=== PATIENT | male | born 1950 | race Caucasian/White ===

== ENCOUNTER 2020-05-11 15:37 | Inpatient (IN) | payer MEDICARE, BC ==
[~2020-05-11] VITALS: Ht 172.7 cm; Wt 86.4 kg
[2020-05-11 16:55] LABS: HEMATOCRIT 44.9 % (42.0-52.0); HEMOGLOBIN 15.7 g/dl (13.5-18.0); MEAN CELL VOLUME 90 fl (80.0-100.0); MEAN CORPUSCULAR HEMOGLOBIN 31 pg (27.0-31.0); MEAN CORPUSCULAR HGB CONC 35 g/dl (33.0-37.0); MEAN PLATELET VOLUME 9.4 fl (7.4-10.4); PLATELET COUNT 213 K/mm3 (130-400); REDCELL DISTRIBUTION WIDTH-CV 12.3 % (11.5-14.5)
[2020-05-11 17:11] LABS: ALBUMIN 4.4 gm/dL (3.5-5.0); BILIRUBIN,TOTAL 1.5 mg/dL (0.0-1.0); C-REACTIVE PROTEIN 3.6 mg/dL (0.0-0.9); CALCIUM 9.2 mg/dL (8.4-10.2); CREATININE, serum 1.21 (0.66-1.25); TOTAL PROTEIN 7.5 gm/dL (6.4-8.2)
[2020-05-11 17:35] LABS: LIPASE 46 U/L (23-300)
[2020-05-11 17:39] LABS: BAND 15 % (0-10); LYMPHOCYTE 3 % (20.0-51.0); NEUTROPHILS 75 % (42.0-75.2)
[2020-05-11 17:40] LABS: OVALOCYTES 1+
[2020-05-11 17:50] LABS: TROPONIN-I < 0.012 ng/mL (0.000-0.035)
[2020-05-11 18:18] LABS: COLLECTION METHOD CLEAN CATCH
[2020-05-11 18:42] LABS: MUCOUS Present /lpf; PH 5 (5-8); SQUAMOUS EPITHELIAL None Seen /hpf; URINE APPEARANCE Hazy; URINE BACTERIA Many /hpf; URINE BILIRUBIN Negative (NEGATIVE); URINE BLOOD Negative (NEGATIVE); URINE COLOR Yellow; URINE GLUCOSE Negative (NEGATIVE); URINE KETONE Negative (NEGATIVE); URINE LEUKOCYTE ESTERASE Trace (NEGATIVE); URINE NITRATE Negative (NEGATIVE); URINE PROTEIN(semi-quant) Negative (NEGATIVE); URINE RBC 0-2 /hpf; URINE UROBILINOGEN Negative (NEGATIVE)
--- NOTE | 2020-05-11 19:05 | NUR ---
Vancomycin Initial Dosing Pharmacy Note Ordering provider: Melvin Rivera MD Indication/duration: EMPIRIC Relevant comorbidities: RECENT LABS: WBC 19.1, TMAX 101.3, SCr 1.2, CrCl 54 Recommendation: VANCOMYCIN 17 MG/KG Loading dose: 1.5 grams Maintenance dose: 1.5 grams every 12 hours Trough goal: 15-20 ug/mL. TROUGH 05/13 @ 1900
[2020-05-11 20:23] VITALS: BP 119/58; PULSE 97; TEMP 101
[2020-05-11] MEDS ORDERED: LIPITOR 80MG80 MG PO (23:35)
[2020-05-11] MEDS ORDERED: ASPIRIN 32325 MG/TAB PO (23:37)
[2020-05-11] MEDS ORDERED: DAILY MULTIPLE1 T18 (23:38)
[2020-05-11 23:44] VITALS: BP 102/57; PULSE 102; TEMP 103
[2020-05-12] VITALS (8 sets, daily range): BP systolic 101–146; BP diastolic 49–62; PULSE 75–98; TEMP 98.4–103.1
[2020-05-12 07:11] LABS: BASO % 0.2 % (0.0-2.0); GRAN # 15.1 (1.4-6.5); GRAN % 86.2 % (42.2-75.2); HEMATOCRIT 40.2 % (42.0-52.0); LYMPH # 1.2 (1.2-3.4); LYMPH % 6.9 % (20.0-51.0); MEAN CELL VOLUME 93 fl (80.0-100.0); MEAN CORPUSCULAR HEMOGLOBIN 32 pg (27.0-31.0); MEAN CORPUSCULAR HGB CONC 34 g/dl (33.0-37.0); MEAN PLATELET VOLUME 10.4 fl (7.4-10.4); MONO # 1.1 (0.1-0.6); MONO % 6.2 % (1.7-9.3); PLATELET COUNT 162 K/mm3 (130-400); RED BLOOD COUNT 4.31 M/mm3 (4.20-5.60); REDCELL DISTRIBUTION WIDTH-CV 12.7 % (11.5-14.5)
[2020-05-12 07:18] LABS: HEMOGLOBIN 13.6 g/dl (13.5-18.0)
[2020-05-12 07:19] LABS: ALBUMIN 3.6 gm/dL (3.5-5.0); BILIRUBIN,TOTAL 1.2 mg/dL (0.0-1.0); CALCIUM 8.2 mg/dL (8.4-10.2); CREATININE, serum 1.17 (0.66-1.25); POTASSIUM 3.8 mmol/L (3.4-5.0); TOTAL PROTEIN 6.3 gm/dL (6.4-8.2)
--- NOTE | 2020-05-12 08:40 | NUR ---
Shift assessment complete. Pt lying in bed, denies pain or nausea. Mild temp of 100.9 this AM, no chills. Heart RRR. Lungs CTA. A&Ox4. Reports decreased appetite. NS running at 150 ml/hr and vanco infusing piggback. Denies other needs. Call light in reach.
--- NOTE | 2020-05-12 12:16 | NUR ---
First visit from the linter saw sharpener. No needs right now.
--- NOTE | 2020-05-12 13:27 | NUR ---
Blade Sharpener met with patient and patient's , Jenae (ph#[phone]) to discuss discharge planning. Patient lives in [place] with his and sees Dr. Romero for primary care. Patient obtains medications from [facility] in with no difficulties. Patient does not use DME and reports independence with ADLS. Patient reports he has DPO[employer]-HC which designates his , Jenae but SW did not locate copy in EMR. Patient plans to return home upon discharge. SW will continue to follow.
--- NOTE | 2020-05-12 17:48 | NUR ---
Intermittent fevers today with T-max of 102.9. Temp at this time 100.1. Pt reporting chills and is visibly shivering. Tylenol not due for another hour but will administer when due. Reports decreased appetite today and did not each much. No other complaints. Continuing to monitor.
--- NOTE | 2020-05-12 21:25 | NUR ---
Patient assessed at this time. Alert and oriented x 4, and able to make needs known. Denies having pain and discomfort at this time. Peripheral IV to left wrist. Site without redness, warmth, swelling, and pain. Denies having SOB and dyspnea. LS CTA. Respirations even and unlabored. HRR. Capillary refill less than 3 seconds. Non-tenting skin turgor. BSAx4. Abdomen soft and non-tender. No edema. Voices no questions, needs, or concerns at this time. Resting in bed with call light within reach. Temp 103.1. Given PRN APAP.
[2020-05-13 03:37] VITALS: BP 147/46; PULSE 108; TEMP 98.9
--- NOTE | 2020-05-13 05:23 | NUR ---
Patient has been afebrile this shift since receiving PRN APAP at beginning of shift. Denies having pain and discomfort at this time. Voices no questios, needs, or concerns at this time. Resting in bed with call light within reach.
[2020-05-13 07:19] VITALS: BP 140/56; PULSE 98; TEMP 100.3
--- NOTE | 2020-05-13 07:58 | NUR ---
Assessment complete. Paient relaxing in bed on entry. States he was able to eat a little bit but his appetite still isnt really there. No complaints of pain or discomfort were expressed. Informed him of student nurse that with him this morning as well. IV site is CD&I, zosyn currently infusing at this time. Patient denies other needs at this time. PAtient remains independent with no issues. Will continue to monitor. Call light is in reach.
[2020-05-13 08:09] LABS: HEMATOCRIT 33.7 % (42.0-52.0); HEMOGLOBIN 11.6 g/dl (13.5-18.0); MEAN CELL VOLUME 92 fl (80.0-100.0); MEAN CORPUSCULAR HEMOGLOBIN 32 pg (27.0-31.0); MEAN CORPUSCULAR HGB CONC 34 g/dl (33.0-37.0); MEAN PLATELET VOLUME 9.9 fl (7.4-10.4); PLATELET COUNT 128 K/mm3 (130-400); RED BLOOD COUNT 3.67 M/mm3 (4.20-5.60); REDCELL DISTRIBUTION WIDTH-CV 12.9 % (11.5-14.5)
[2020-05-13 08:21] LABS: ALBUMIN 2.8 gm/dL (3.5-5.0); BILIRUBIN,TOTAL 1.2 mg/dL (0.0-1.0); CALCIUM 7.8 mg/dL (8.4-10.2); CREATININE, serum 1.16 (0.66-1.25); POTASSIUM 3.4 mmol/L (3.4-5.0); TOTAL PROTEIN 5.6 gm/dL (6.4-8.2)
[2020-05-13 10:53] LABS: MONOSCREEN NEGATIVE
[2020-05-13 12:20] VITALS: BP 127/53; PULSE 65; TEMP 97.7
[2020-05-13 16:29] VITALS: BP 160/79; PULSE 115; TEMP 100.1
[2020-05-13 16:36] VITALS: BP 160/62
--- NOTE | 2020-05-13 18:29 | NUR ---
Patient has had a good day. he felt really good around lunch and was able to eat a full meal. Near shift change patient began to feel shivery and minimally dizzy. PRN tylenol was provided and patient was encouraged to relax and not attempt to move around too much. currently at the [facility]. PAtient not wanting to eat dinner at this time, states he will when he feels a little better. Encouraged patient to call is chills or dizziness got orse. Continuing to monitor. Call light is in reach.
[2020-05-13 19:27] VITALS: BP 119/56; PULSE 98; TEMP 102.5
--- NOTE | 2020-05-13 22:03 | NUR ---
Awake, alert, oriented x 4, fever noted, reviewed orders for tylenol- not due yet, adjusted room temp, patient teaching, encouraged po fluids, ambulates independently, respirations even and unlabored on room air, tolerating IV abt w/o difficulty.
[2020-05-14] VITALS (16 sets, daily range): BP systolic 117–150; BP diastolic 58–73; PULSE 74–90; TEMP 97.9–100.8
[2020-05-14 07:11] LABS: BASO % 0.3 % (0.0-2.0); EOS # 0.1 (0.0-0.7); EOS % 1.1 % (0-4.0); GRAN # 6.7 (1.4-6.5); HEMOGLOBIN 11.8 g/dl (13.5-18.0); LYMPH % 10.7 % (20.0-51.0); MEAN CELL VOLUME 92 fl (80.0-100.0); MEAN CORPUSCULAR HEMOGLOBIN 31 pg (27.0-31.0); MEAN CORPUSCULAR HGB CONC 34 g/dl (33.0-37.0); MEAN PLATELET VOLUME 10.7 fl (7.4-10.4); MONO # 1.1 (0.1-0.6); MONO % 12.3 % (1.7-9.3); PLATELET COUNT 141 K/mm3 (130-400); RED BLOOD COUNT 3.83 M/mm3 (4.20-5.60); REDCELL DISTRIBUTION WIDTH-CV 12.8 % (11.5-14.5)
[2020-05-14 07:15] LABS: HEMATOCRIT 35.2 % (42.0-52.0)
[2020-05-14 07:20] LABS: CALCIUM 8.3 mg/dL (8.4-10.2); CREATININE, serum 1.11 (0.66-1.25); POTASSIUM 3.5 mmol/L (3.4-5.0)
--- NOTE | 2020-05-14 08:30 | NUR ---
Assessment complete. Patient resting in bed on entry, currently at the bedsdie. Patient states he is exhausted but is grateful that his fever is under control for the moment. Patient denies pain or disocmfort. IV site is currently CD&I, flushed well. Patient states he will try to eat a little bit of breakfast this morning. Will continue to montior. Call light is in reach.
--- NOTE | 2020-05-14 13:19 | NUR ---
Blood pressures monitored Q15 mins for 1 hour after recieving Rocephin due to past hypertensive allergic reaction. Blood pressures remained within normal limits, patient reported no issues after recieving the medication.
--- NOTE | 2020-05-14 14:16 | NUR ---
Primary nurse was assisted with [phone] patient care by [employer] student Georgette Blas and [employer] instructor Alice Valdez RN-.
--- NOTE | 2020-05-14 17:36 | NUR ---
Patient has had an uneventful shift. No complaints of pain or discomfort. Low grade temp noted at 1600 vitals but no other temps higher than this. has been at the bedside all day. PAtient has had minimal needs. [facility] P[facility]ient remains independent in the room. CAll light is in reach.
--- NOTE | 2020-05-14 21:46 | NUR ---
Awake, sitting up in chair, ambulating around room w/o issue, denies diarrhea, denied snack at bedtime, VS stable, tolerating antibiotics with decreased appetite, updated on plan of care.
[2020-05-15 00:30] VITALS: BP 139/68; PULSE 73; TEMP 99.2
[2020-05-15 04:20] VITALS: BP 102/83; PULSE 71; TEMP 98.5
[2020-05-15 07:13] LABS: HEMOGLOBIN 11.6 g/dl (13.5-18.0); MEAN CELL VOLUME 91 fl (80.0-100.0); MEAN CORPUSCULAR HEMOGLOBIN 31 pg (27.0-31.0); MEAN CORPUSCULAR HGB CONC 34 g/dl (33.0-37.0); MEAN PLATELET VOLUME 10.2 fl (7.4-10.4); PLATELET COUNT 167 K/mm3 (130-400); RED BLOOD COUNT 3.78 M/mm3 (4.20-5.60); REDCELL DISTRIBUTION WIDTH-CV 12.6 % (11.5-14.5)
[2020-05-15 07:15] LABS: HEMATOCRIT 34.2 % (42.0-52.0)
[2020-05-15 07:23] LABS: ALBUMIN 3.2 gm/dL (3.5-5.0); BILIRUBIN,TOTAL 0.9 mg/dL (0.0-1.0); CALCIUM 8.6 mg/dL (8.4-10.2); POTASSIUM 3.7 mmol/L (3.4-5.0); TOTAL PROTEIN 6.1 gm/dL (6.4-8.2)
--- NOTE | 2020-05-15 08:00 | NUR ---
Patient laying in bed, A&Ox4. VSS. IV CDI. Denies pain and discomfort. Patient NPO for a procedure. No further needs expressed from the patient. Call light within reach
[2020-05-15 08:25] VITALS: BP 139/70; PULSE 64; TEMP 98.1
[2020-05-15] MEDS ORDERED: AMOXICILLIN 8751 TAB PO (09:34)
--- NOTE | 2020-05-15 10:43 | NUR ---
Discharge paperwork reviewed with the patient. Patient verbalized an understanding to follow doctors orders. IV removed, tip intact, gauze and coban applied. No further needs expressed from the patient.
--- NOTE | 2020-05-15 11:00 | NUR ---
Patient ambulated independently with nursing staff and to vehicle. Discharge paperwork and personal belongings with the patient.
== END 2020-05-15 10:45 | disposition home or self-care (01) | DRG 872 ==
LOC: COL.ER 15:37 → MEDICAL 18:28
PROVIDERS: Nurse Practitioner; Physician Assistant; Student in an Organized Health Care Education/Training Program; ADMIT Hospitalist
DX: A41.51 Sepsis due to Escherichia coli [E. coli] (principal); N39.0 Urinary tract infection, site not specified; N40.0 Benign prostatic hyperplasia without lower urinary tract symptoms; E78.5 Hyperlipidemia, unspecified; Z20.822 Contact with and (suspected) exposure to COVID-19; Z66 Do not resuscitate; R19.7 Diarrhea, unspecified; Z79.82 Long term (current) use of aspirin; Z86.73 Personal history of transient ischemic attack (TIA), and cerebral infarction without residual deficits
CPT/HCPCS: 99223-AI; 99232-AI; 99233-AI; 99239; G0378; J0696; J1650; J2543; J3370; J7030; J7050